=== PATIENT | male | born 1965 | race Hispanic/Latino ===

== ENCOUNTER 2019-12-16 10:38 | Outpatient (CLI) | payer OTHER | END 2019-12-16 10:39 | disposition home or self-care (01) | LOC: DTY/OP 10:38 | PROVIDERS: ATTEND Family Medicine | DX: E66.9 Obesity, unspecified (principal); I10 Essential (primary) hypertension; E78.5 Hyperlipidemia, unspecified | CPT/HCPCS: 97802 ==

== ENCOUNTER 2021-02-14 09:55 | Outpatient (CLI) | payer OTHER | END 2021-02-14 09:56 | disposition home or self-care (01) | LOC: ULT 09:55 | PROVIDERS: ATTEND Family Medicine | DX: I10 Essential (primary) hypertension (principal); R10.84 Generalized abdominal pain; K76.0 Fatty (change of) liver, not elsewhere classified; K82.9 Disease of gallbladder, unspecified | CPT/HCPCS: 76856; 93975 ==

== ENCOUNTER 2021-06-18 08:13 | Outpatient (CLI) | payer OTHER ==
[2021-06-18] MEDS ORDERED: Iopamidol 370 76% 100 ML VIAL ONE (11:06)
== END 2021-06-18 08:14 | disposition home or self-care (01) ==
LOC: CT 08:13
PROVIDERS: ATTEND Internal Medicine Nephrology
DX: I10 Essential (primary) hypertension (principal); N13.30 Unspecified hydronephrosis; K80.20 Calculus of gallbladder without cholecystitis without obstruction; N28.1 Cyst of kidney, acquired
CPT/HCPCS: 74170; 82565; Q9967